=== PATIENT | male | born 1995 | race Caucasian/White ===

== ENCOUNTER 2020-04-29 13:09 | Inpatient (IN) | payer OTHER, SELFPAY ==
[2020-04-29] VITALS (9 sets, daily range): BP systolic 112–139; BP diastolic 85–108; PULSE 65–144; RESP 16–20; TEMP 36.7–36.9; O2SAT 97–98; BMI 25.2
--- NOTE | ~2020-04-29 | US_ITS ---
US right upper quadrant DATE: 04/30/2020 08:31 INDICATION: Elevated liver function tests. Alcohol abuse. TECHNIQUE: Real-time imaging of liver, pancreas, gallbladder areas COMPARISON: None FINDINGS: No hepatic or pancreatic space-occupying mass lesion is detected. Normal hepatopedal portal venous flow direction. The common bile duct measures 2 mm, within normal limits. Gallbladder wall measures 2 mm thickness, within upper limits of normal. The gallbladder is not very distended. No gallstones or pericholecystic fluid. Negative sonographic Alejandro's sign. IMPRESSION: Gallbladder wall measures up to 2 mm thick. The gallbladder is not very distended. No gal lstones are evident. Negative sonographic Alejandro's sign. If further evaluation of gallbladder functio n is desired, consider radionuclide hepatobiliary scan Reviewed, dictated and finalized at [facility]. Reviewed, dictated and finalized at [facility]. IMPRESSION: Gallbladder wall measures up to 2 mm thick. The gallbladder is not very distended. No gallstones are evident. Negative sonographic Alejandro's sign. If further evaluation of gallbladder function is desired, consider radionuclide hepatobiliary scan
[2020-04-29 13:43] LABS: Basophils Percent Auto 0.2 % (0.2-1.2); Hematocrit 52.5 % (42.0-52.0); Hemoglobin 18.7 g/dL (14.0-18.0); Immature Granulocyte Absolute 0.05 K/mm3 (0.00-0.031); Immature Granulocyte Percent A 0.3 % (0-0.5); Lymphocytes Absolute Auto 0.82 K/mm3 (0.9-3.2); Lymphocytes Percent Auto 5.2 % (18.3-44.2); Mean Corpuscular HGB Conc 35.6 g/dl (32-36); Mean Corpuscular Hemoglobin 36.9 pg (26-34); Mean Corpuscular Volume 103.6 fl (80-100); Monocytes Absolute Auto 0.7 K/mm3 (0.1-0.6); Monocytes Percent Auto 4.4 % (2.6-8.5); Neutrophils Absolute Auto 14.1 K/mm3 (1.3-6.7); Neutrophils Percent Auto 89.9 % (45.5-73.1); Platelet Count Result 164 k/mm3 (150-375); Red Blood Count 5.07 M/mm3 (4.6-6.20); Red Cell Distribution Width 13.9 % (11.5-14.5); White Blood Count 15.7 K/mm3 (4.5-10.0)
[2020-04-29 14:04] LABS: Alanine Aminotransferase 280 U/L (4-50); Albumin Level 5.7 g/dL (3.5-5.1); Alkaline Phosphatase 106 U/L (38-126); Aspartate Amino Transferase 227 U/L (17-59); Bilirubin,Total 1.3 mg/dL (0.2-1.3); Blood Urea Nitrogen 35 mg/dL (9-20); Calcium 11.1 mg/dL (8.4-10.2); Carbon Dioxide 20 mmol/L (22-30); Chloride 94 mmol/L (98-107); Estimated CRCL calculation 26 ml/min; Estimated Glomerular Filt Rate 18; Glucose 128 mg/dL (75-110); Lipase 94 U/L (23-300); Sodium 136 mmol/L (137-145)
--- NOTE | 2020-04-29 14:14 | ED.NAVMDI ---
HPI - Nausea/Vomiting/Diarrhea General Chief complaint: Nausea/Vomiting/Diarrhea Stated complaint: n/v, body cramps Time Seen by Provider: 04/29/20 13:42 Source: patient Mode of arrival: ambulatory Limitations: no limitations History of Present Illness HPI Narrative: This patient is a 24 year old male who presents for evaluation nausea and vomiting since yesterday. He states yesterday he was working all day in the heat and he is not used to doing that. He states he became dehydrated and overheated. He has been having muscle cramps and intractable nausea and vomiting since. He has not fever, chills, cough or sob. MD elicited complaint: nausea and vomiting Related Data Home Medications Medication Instructions Recorded Confirmed No Home Medications 04/29/20 04/29/20 Allergies Allergy/AdvReac Type Severity Reaction Status Date / Time acetaminophen [From Vicodin] Allergy Nausea and Verified 04/29/20 13:40 Vomiting hydrocodone [From Vicodin] Allergy Nausea and Verified 04/29/20 13:40 Vomiting sulfamethoxazole Allergy Unknown Verified 04/29/20 13:40 [From Bactrim] trimethoprim [From Bactrim] Allergy Unknown Verified 04/29/20 13:40 Review of Systems Review of Systems: All systems reviewed & are unremarkable except as noted in HPI and below Constitutional: Constitutional: Denies chills and Denies fever(s) Respiratory: Respiratory: Denies cough and Denies dyspnea Gastrointestinal: Gastrointestinal: Reports abdominal pain, Denies diarrhea, Reports nausea and Reports vomiting Musculoskeletal: Musculoskeletal: Reports muscle cramps Psychiatric: Psychiatric: Reports anxiety PMFSH Past Medical History Medical History (Updated 04/29/20 @ 19:18 by Gavi Rooney MD) Patient denies medical problems Social History Social History (Updated 04/29/20 @ 14:16 by Gavi Rooney MD) Smoking packs per day: 1 Smoking cigarettes per day: 20.0 Years smoked: 3 Smoking pack-years: 3.00 Smoking status: Current every day smoker Tobacco type: cigarettes Alcohol intake: current Drinks per week: 25 Alcohol use details: pint of rum daily Substance use: current Substance use type: marijuana Gender identity (if verbalized by the patient): Male Spiritual care concerns: No Exam Narrative: Exam Narrative: GENERAL: Well-appearing, well-nourished, and in no acute distress. HEAD: Normocephalic, atraumatic EYES: PERRLA and EOMI, conjunctiva clear without discharge THROAT: dry mucous membrane NECK: Supple, without lymphadenopathy or mass RESPIRATORY: No respiratory distress, Airway patent, Respirations non-labored, Clear to auscultation without rales, rhonchi or wheeze HEART: Regular rate and rhythm. No murmur heard. Normal peripheral pulses. ABDOMEN: Soft, nontender, nondistended, normal active bowel sounds. No masses. No rebound or guarding, No organomegaly. EXTREMITIES: No edema, normal strength with full range of motion. SKIN: Warm, dry, normal color without rash NEURO: Alert and oriented x3. CN 2-12 grossly intact. No focal deficits. no tremors PSYCH: mildly anxious Course Consultations Consultation #1: I discussed with Gilda patient to be admitted for acute renal failure. Patient has history of heavy alcohol . He does not appear to be severe withdrawals. No tremors . Date: 04/29/20 Time: 15:00 Vital Signs Vital signs: Vital Signs Temperature 98.4 F 04/29/20 13:21 Pulse Rate 125 H 04/29/20 13:21 Respiratory Rate 20 04/29/20 13:21 Blood Pressure 138/108 H 04/29/20 13:21 Temperature 98.2 F 04/29/20 16:35 Pulse Rate 88 04/29/20 16:52 Respiratory Rate 16 04/29/20 16:35 Blood Pressure 139/90 04/29/20 16:35 Pulse Oximetry 97 04/29/20 16:35 MDM - Nausea/Vomiting/Diarrhea Lab Data Attestation: I reviewed the patient's lab results. Result diagrams: 04/29/20 13:29 04/29/20 13:29 Labs: Lab Resul
[2020-04-29 14:36] LABS: Creatine Kinase 542 U/L (55-170)
[2020-04-29] MEDS: SODIUM CHLORIDE 0.9% IV 1,000 ML 999 ML IV CONT ×2 (14:43)
[2020-04-29] MEDS: ONDANSETRON INJ 4 MG/2 ML VIAL IV PUSH (14:43)
--- NOTE | 2020-04-29 15:53 | PC.NURSE ---
Called to give report. Was told by Deepti that receiving nurse was giving meds and will call me when she gets done.
[2020-04-29] MEDS: SODIUM CHLORIDE 0.9% IV 1,000 ML 125 ML IV CONT ×2 (16:43→23:42)
--- NOTE | 2020-04-29 16:57 | ADMGEN ---
This patient, Gigi Antonio, was admitted to Medical Room 249-01. Patient/family oriented to hospital policies and general routines including ID bracelet, bed and alarms, visiting hours, pain management, procedures, bathroom and other care routines, personal items, smoking policy, room service/diet, and visiting hours. Valuables list has been completed. Information on how to activate the Rapid Response Team has been discussed. Patient/Family are encouraged to report perceived risks to care and to ask questions if they do not understand what they are told or what they should do.
--- NOTE | 2020-04-29 18:00 | PM.IMHP ---
H&P: HPI History of Present Illness Chief complaint: Nausea, vomiting, muscle cramps. Narrative: Gigi Antonio is a 24-year-old male who presented to the emergency department earlier this afternoon with complaints of nausea, vomiting, and muscle cramps. Yesterday he spent the day in a very hot building, running electricity. As the day progressed he began to feel poorly and he assumed that he was probably dehydrated with symptoms to include diffuse sweating, lightheadedness, nausea, muscle cramps, and weakness to the point where he really could barely walk himself to the car. Throughout the evening he had numerous episodes of emesis followed by dry heaves and he reports having a liquid stool this morning. He believes that he urinated only one time yesterday, and was only able to provide a very small amount of tea-colored urine today in the emergency department. He is being admitted for severe dehydration and acute kidney injury, likely due to heat exposure. Of note, the patient drinks at least a pint of rum a day, and typically can only go 4 hours or so without experiencing tremors and sweats. He has not had a drink since evening, and does note having some tremors and sweats today but is feeling better at this time after receiving diazepam in the emergency department. He does not like the way that he feels with benzodiazepines, and requests that we do not start him on scheduled medications. Three weeks ago he stopped drinking for over a week to proved to people that I could and it sounds as though he had withdrawal symptoms for about 5 days to include tremors, sweats, and generalized malaise. He is not having headache or hallucinations and he denies history of alcohol withdrawal seizure. At the time my evaluation he feels much better after receiving IV fluids and he has no complaints. Review of Systems Review of Systems: Narrative: Twelve systems were reviewed with pertinent positives and negatives as per HPI. No fever. He denies cold and flu symptoms. He travels frequently for work, and flew to [place] from his home in [place] earlier this week. No sick contacts or exposure to those positive for COVID-19. He denies chest pain and shortness of breath. He complains of pain along his ribs and flanks due to dry heaves. he has a prescription for fluoxetine for depression however he does not taken on a regular basis. No suicidal homicidal ideations.Except as documented, all other systems were reviewed and are negative. [facility] Past Medical History Medical History Alcohol abuse Depression Tobacco use Surgical History Surgical History (Updated 04/29/20 @ 22:19 by Gilda Araujo PA-C) History of myringoplasty History of surgery on extremity Left leg surgery at as a child, done at [facility]. Family History Family History (Updated 04/29/20 @ 22:20 by Gilda Araujo PA-C) Father , Father was murdered. Patient does not believe he had any medical problems but reports a long history of substance abuse on his paternal side. No problems noted. Social History Social History (Updated 04/29/20 @ 22:22 by Gilda Araujo PA-C) Social History: Surrogate decision maker: Kartik Antonio, mother. Code status: Full code. Smoking packs per day: 1 Smoking cigarettes per day: 20.0 Years smoked: 3 Smoking pack-years: 3.00 Smoking status: Current every day smoker Tobacco type: cigarettes Alcohol intake: current Alcohol use details: A pint of rum each day however on occasion he will drink a 1.75 L bottle in a day. Substance use: current Substance use type: marijuana Additional living arrangements comments: Patient lives in [place], [place]. Additional occupation/education comments: Guest Associate. Gender identity (if verbalized by the patient): Male Spiritual care concerns: No Meds Home Medications and Allergies Home Medications Medication Instructions Recorded Co
--- NOTE | 2020-04-29 18:19 | PC.NURSE ---
I notified ANN Gaston that the patient had a possible sepsis surveillance. She said that she will look at his labs and assess the patient.
[2020-04-29 22:49] LABS: Anion Gap 12.3 mmol/L (7-16); Blood Urea Nitrogen 29 mg/dL (9-20); Calcium 8.9 mg/dL (8.4-10.2); Carbon Dioxide 25 mmol/L (22-30); Chloride 99 mmol/L (98-107); Creatine Kinase 536 U/L (55-170); Estimated CRCL calculation 53 ml/min; Estimated Glomerular Filt Rate 41; Glucose 114 mg/dL (75-110); Magnesium 2.1 mg/dL (1.6-2.3); Potassium 3.3 mmol/L (3.4-5.0); Sodium 133 mmol/L (137-145)
[2020-04-29] MEDS: THIAMINE HCL 200 MG/2 ML VIAL 100 MG IV PUSH (23:42)
[2020-04-29 23:55] LABS: Folic Acid 5.4 ng/mL (2.76->20)
[2020-04-30] VITALS: PULSE 77
[2020-04-30 00:02] LABS: Add Urine Microscopic? YES; Appearance Urine Clear (Clear); Bilirubin Urine Negative (Negative); Blood Urine Negative (Negative); Color Urine Yellow (Yellow); Glucose Urine UA Negative (Negative); Ketones Urine Trace mg/dL (Negative); Leukocyte Esterase Ur Negative LEU/UL (Negative); Mucus Urine Rare /lpf; Nitrate Urine Negative (Negative); Protein Urine Negative (Negative); RBC Urine 0-2 /hpf (0-2); Specific Grav Ur 1.021 (1.001-1.035); Squamous Epithelial Cell Urine Rare /hpf (Few); Urobilinogen Urine Negative mg/dL (<2.0)
[2020-04-30 01:35] LABS: HAV RESULT Negative (Negative); Hepatitis B Core IgM Result Negative (Negative); Hepatitis B Surface Antigen Negative (Negative)
[2020-04-30 01:38] LABS: Hepatitis C Virus Antibody Negative (Negative)
[2020-04-30 04:00] VITALS: PULSE 85
[2020-04-30 05:45] LABS: Basophils Percent Auto 0.3 % (0.2-1.2); Eosinophils Percent Auto 0.3 % (0-4.4); Hematocrit 43.8 % (42.0-52.0); Hemoglobin 15.1 g/dL (14.0-18.0); Immature Granulocyte Absolute 0.02 K/mm3 (0.00-0.031); Immature Granulocyte Percent A 0.2 % (0-0.5); Immature Platelet Fraction Pct 6.6 % (0.9-11.2); Lymphocytes Absolute Auto 1.89 K/mm3 (0.9-3.2); Mean Corpuscular HGB Conc 34.5 g/dl (32-36); Mean Corpuscular Hemoglobin 36.7 pg (26-34); Mean Corpuscular Volume 106.3 fl (80-100); Mean Platelet Volume 10.8 fl (7.4-10.4); Monocytes Absolute Auto 0.7 K/mm3 (0.1-0.6); Monocytes Percent Auto 8.1 % (2.6-8.5); Neutrophils Absolute Auto 5.9 K/mm3 (1.3-6.7); Neutrophils Percent Auto 69.1 % (45.5-73.1); Platelet Count Result 103 k/mm3 (150-375); Red Blood Count 4.12 M/mm3 (4.6-6.20); Red Cell Distribution Width 13.5 % (11.5-14.5); White Blood Count 8.6 K/mm3 (4.5-10.0)
[2020-04-30 06:00] VITALS: BP 134/87; PULSE 55; RESP 16; TEMP 35.8; O2SAT 100
[2020-04-30 06:03] LABS: Prothrombin Time 12.7 Seconds (11.1-14.7)
[2020-04-30 06:04] LABS: Partial Thromboplastin Time 24.5 SECONDS (22.3-36.8)
[2020-04-30 06:10] LABS: Alanine Aminotransferase 167 U/L (4-50); Albumin Level 4.1 g/dL (3.5-5.1); Alkaline Phosphatase 62 U/L (38-126); Aspartate Amino Transferase 150 U/L (17-59); Bilirubin,Total 1.3 mg/dL (0.2-1.3); Blood Urea Nitrogen 28 mg/dL (9-20); Calcium 8.8 mg/dL (8.4-10.2); Carbon Dioxide 30 mmol/L (22-30); Chloride 99 mmol/L (98-107); Estimated CRCL calculation 70 ml/min; Estimated Glomerular Filt Rate 57; Glucose 95 mg/dL (75-110); Sodium 135 mmol/L (137-145)
[2020-04-30 08:00] VITALS: PULSE 55
[2020-04-30] MEDS: SODIUM CHLORIDE 0.9% IV 1,000 ML 125 ML IV CONT (08:55)
[2020-04-30] MEDS: FOLIC ACID 1 MG TABLET PO (09:39)
[2020-04-30] MEDS: THIAMINE HCL 100 MG TABLET PO (09:39)
[2020-04-30 10:16] LABS: Creatine Kinase 556 U/L (55-170)
--- NOTE | 2020-04-30 10:39 | PC.NURSE ---
I notified Dr. Caceres that the patient is very anxious to be discharged today due to having a flight to catch back to [place]. He said that he would be in to see the patient shortly.
--- NOTE | 2020-04-30 11:16 | PM.CNNEP ---
Assessment and Plan Assessment and plan (1) Acute dehydration: Code(s): E86.0 - Dehydration Status: Acute Assessment and Plan: The patient has dehydration from the hot environment. Urine specific gravity was high. He has improved dramatically with fluids. His CK is mildly high at 500. This has been stable. I do not think this is contributing to his kidney issues. This is probably Caused by the cramping and dehydration. will continue the IV fluids to get another creatinine in an hour so. As long as it is not worse, I think he would be okay for discharge from the kidney standpoint. Discussed with ANN Zabala. (2) Elevated LFTs: Code(s): R79.89 - Other specified abnormal findings of blood chemistry Status: Acute Assessment and Plan: Liver enzymes are elevated. This is likely related to the alcohol. Hepatitis studies are negative. Ultrasound did show that the gallbladder wall is at the upper limits of thickness. (3) Alcohol abuse: Code(s): F10.10 - Alcohol abuse, uncomplicated Status: Acute Assessment and Plan: The patient says he is going to quit drinking alcohol now. No signs of alcohol withdrawal. He is not sweating, vital signs are okay, and no tremor. (4) Tobacco use: Code(s): Z72.0 - Tobacco use Status: Acute Assessment and Plan: He should eventually quit smoking as well. History of Present Illness Reason for Consult Consult date: 04/30/20 Chief Complaint Chief complaint: Nausea, vomiting, muscle cramps. History of Present Illness Narrative: Ggii is a very pleasant 24-year-old gentleman who has depression. He takes Prozac every once in a while he says. He was in [place] for a job. He lives in dialysis normally. He was in a very hot environment. He had profuse sweating. He was not drinking much fluid to keep up. On Friday, He developed lightheadedness nausea muscle cramps. The cramps were mostly in his calves. He developed weakness later that shift. he barely made it to the car. He went home and took a cold shower. He tried to drink lots of fluid but ended up having nausea and vomiting. He noted his urine output was lower. He went to bed thinking he might just be better by morning. But yesterday morning he was still sick and nauseated and so came to the ER. In the ER he had a high BUN creatinine with elevated liver enzymes and he was admitted. He was hydrated overnight. His creatinine was 4.1 in the ER fell to 2 last evening and 1.5 this morning. He says he is making plenty of urine now it is clear and almost colorless. He wants to be discharged because he is flying back to dialysis tomorrow. The patient drinks heavily. He drinks at least a pint of rum every day. His says he does not normally drink a lot of water when he is drinking the alcohol. He smokes a pack a day of cigarettes. Review of Systems Constitutional: Constitutional: Reports no additional constitutional complaints Eyes: Eyes: Reports no additional eye complaints ENT: Reports system reviewed and no additional complaints, except as documented Cardiovascular: Cardiovascular: Reports no additional cardiovascular complaints Respiratory: Respiratory: Reports no additional respiratory complaints Gastrointestinal: Gastrointestinal: Reports no additional gastrointestinal complaints Genitourinary: Genitourinary: Reports no additional male genitourinary complaints Musculoskeletal: Musculoskeletal: Reports no additional musculoskeletal complaints Integumentary/Breasts: Skin/Breast: Reports system reviewed and no additional complaints, except as docu Neurologic: Reports system reviewed and no additional complaints, except as documented Psychiatric: Psychiatric: Reports no additional psychiatric complaints Endocrine: Endocrine: Reports no additional endocrine complaints PMFSH Past Medical History Medi
[2020-04-30 12:00] VITALS: PULSE 61
[2020-04-30 12:05] LABS: Anion Gap 9.8 mmol/L (7-16); Blood Urea Nitrogen 22 mg/dL (9-20); Calcium 8.6 mg/dL (8.4-10.2); Carbon Dioxide 27 mmol/L (22-30); Chloride 100 mmol/L (98-107); Estimated CRCL calculation 103 ml/min; Estimated Glomerular Filt Rate > 60; Glucose 99 mg/dL (75-110); Potassium 3.8 mmol/L (3.4-5.0); Sodium 133 mmol/L (137-145)
--- NOTE | 2020-04-30 13:32 | PM.DS ---
DS: Admitting Diagnosis Admitting Diagnosis Admitting Diagnosis: Acute kidney failure, unspecified DS: Discharge Diagnosis Discharge Diagnosis (1) Acute kidney injury: Code(s): N17.9 - Acute kidney failure, unspecified Status: Resolved (2) Acute dehydration: Code(s): E86.0 - Dehydration Status: Resolved (3) Elevated LFTs: Code(s): R79.89 - Other specified abnormal findings of blood chemistry Status: Acute (4) Alcohol abuse: Code(s): F10.10 - Alcohol abuse, uncomplicated Status: Acute (5) Tobacco use: Code(s): Z72.0 - Tobacco use Status: Acute DS: Summary Hospital Course Reason for hospitalization: Nausea, vomiting, and muscle cramps Hospital Course: Mr. Antonio is a 24 y.o. male with PMH significant for tobacco and alcohol dependence who presented to the emergency department for the evaluation of nausea, vomiting, and muscle cramps. 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 Initial workup in the emergency department revealed WBC 15,700 with neutrophil predominance, Hb 18.7, Hct 52.2, platelets 164, sodium 136, potassium 4.0, chloride 94, CO2 20, BUN 35, Cr 4.1, glucose 128, AST 227, ALT 280, ALP 106, total protein 10, albumin 5.7, lipase 94, bilirubin 1.3, calcium 11.1, CK 536, and UA with 4-6 WBC and otherwise unremarkable. He was treated with IV fluids and admitted to the hospitalist service for HAYLIE. Nephrology was consulted. He had evidence of significant dehydration clinically and on labs. He felt much better following overnight IV fluid rehydration. His renal function improved with Cr 1.0 and BUN 22 on the day of discharge. Due to transaminitis, hepatits panel was ordered and was negative. RUQ US showed 2mm thickness of the gallbladder wall without evidence of gallstones or distention. He had no sx of biliary colic or gallbladder dysfunction and he did not want to pursue further workup for his gallbladder during this admission. I discussed potential concerning symptoms and advised he follow-up with his PCP back at home. He requested to discharge as he was from [place] and needed to catch his flight home. I discussed the risks of alcohol dependence and withdrawal as well as tobacco dependence with the patient at length. He refused benzodiazepine therapy for alcohol withdrawal prophylaxis so he was prescribed a short duration of phenobarbital for seizure prophylaxis. I advised that he absolutely may not drink while taking phenobarbital. I discussed community services available for alcohol cessation as well as inpatient treatment which he was not interested in. He was discharged in stable condition on the morning of 04/30/20. He was advised to have repeat labs in 1 week and he was advised to stay hydrated. Time spent discussing smoking cessation with patient: more than 10 minutes Status at Discharge Functional status at discharge: independent ambulation Overall status at discharge: patient is back to baseline Time Spent with Patient Time attestation: Total time spent providing and/or coordinating discharge services: 45 minutes Exam Narrative: Exam Narrative: General: Very pleasant and cooperative, well-developed, and well-nourished 24 y.o. male who is lying in the semi-recumbent position in bed in no acute distress. HEENT: Normocephalic and atraumatic. Sclera anicteric. Conjunctivae without pallor, injection, or exudate. PERRL. EOMI. Oral mucosa moist. Neck: Supple. Cardiac: Regular rate and rhythm. S1 and S2 normal. Lungs: Lungs are clear to auscultation bilaterally withotu rales, rhonchi, or wheezes. Abdomen: Normoactive bowel sounds. Abdomen is soft, non-distended, and non-tender. Negative gregorio sign. No guarding or rebound tenderness. Extremities: Lower extremities without edema or cyanosis. No calf tenderness. Pedal pulses palpable 2+ bilaterally. Neurological: Alert and oriented x3. Exam is non-foc
--- NOTE | 2020-04-30 14:58 | PC.NURSE ---
Patient was instructed not to drive;however, [place] and was unable to get a ride. I instructed the patient that the ANN Ma recommend that he takes a cab rather than driving as recommended in the discharge instructions. The patient refused a cab and understands that he is driving against the physician assistance recommendations. The patient has signed a formed stating that he understands the risks of driving and states I feel better than before I drove here. I have driven in worse condition than this . I encouraged the patient to take a cab multiple times after explaining the risks.
== END 2020-04-30 14:55 | disposition home or self-care (01) | DRG 684 ==
LOC: ANHED 14:22 → ANH2MED 15:48
PROVIDERS: Internal Medicine Nephrology; Physician Assistant; Admitting Provider Internal Medicine; Emergency Provider General Practice; Visit Provider Physician Assistant
DX: N17.9 Acute kidney failure, unspecified (principal); E86.0 Dehydration; T67.5XXA Heat exhaustion, unspecified, initial encounter; R79.89 Other specified abnormal findings of blood chemistry; F10.10 Alcohol abuse, uncomplicated; F17.210 Nicotine dependence, cigarettes, uncomplicated; F32.9 Major depressive disorder, single episode, unspecified
CPT/HCPCS: 36415; 76705; 80048; 80053; 80074; 81001; 82550; 82607; 82746; 83690; 83735; 85025; 85055; 85610; 85730; 96374; 96375; 99291; A9270; J2405; J3360; J3411; J7030